=== PATIENT | female | born 1960 | race Caucasian/White ===

== ENCOUNTER 2024-09-02 16:00 | Outpatient (RCR) | payer OTHER, SELFPAY | END 2024-09-02 23:59 | disposition home or self-care (01) | LOC: PT.CARL 16:00 | PROVIDERS: Visit Provider Physician Assistant | DX: M17.12 Unilateral primary osteoarthritis, left knee (principal) | CPT/HCPCS: 97032; 97035; 97110; 97161 ==

== ENCOUNTER 2025-01-20 15:00 | Outpatient (RCR) | payer OTHER, SELFPAY | END 2025-01-20 23:59 | disposition home or self-care (01) | LOC: PT.CARL 15:00 | PROVIDERS: Visit Provider Orthopaedic Surgery | DX: Z47.89 Encounter for other orthopedic aftercare (principal); Z96.652 Presence of left artificial knee joint | CPT/HCPCS: 97110; 97162; 97530 ==

== ENCOUNTER 2025-02-24 11:00 | Outpatient (RCR) | payer OTHER, SELFPAY | END 2025-02-24 23:59 | disposition home or self-care (01) | LOC: PT.CARL 11:00 | PROVIDERS: Visit Provider Orthopaedic Surgery | DX: Z47.89 Encounter for other orthopedic aftercare (principal); Z96.652 Presence of left artificial knee joint | CPT/HCPCS: 97110; 97530 ==